=== PATIENT | male | born 1990 | race Caucasian/White ===

== ENCOUNTER 2018-12-04 16:07 | Inpatient (IN) | payer OTHER ==
[~2018-12-04] VITALS: Ht 193 cm; Wt 101.7 kg
[2018-12-04 19:53] VITALS: Ht 193 cm; Wt 101.7 kg
[2018-12-04 20:00] VITALS: BP 128/74; PULSE 60; RESP 19
[2018-12-04] MEDS ORDERED: DOCUSATE SODIUM 100 MG CAP PO PRN (21:30)
[2018-12-04] MEDS ORDERED: VANCOMYCIN IV PER PHARMACY XX SCH (21:30)
[2018-12-04] MEDS ORDERED: NACL 0.9% 3 ML SYG IV SCH (21:30)
[2018-12-04] MEDS ORDERED: ONDANSETRON 4 MG TAB PO PRN (21:30)
[2018-12-04] MEDS ORDERED: ACETAMINOPHEN 325 MG TAB PO PRN (21:30)
[2018-12-04] MEDS ORDERED: PENDING SANTYL ORDER FOR WOUND CARE XX PRN (22:30)
[2018-12-04] MEDS: FAMOTIDINE 20 MG TAB PO SCH (22:31)
[2018-12-04] MEDS: TRIMETHOPRIM/SULFAMETHOX (DS) TAB PO SCH (22:31)
[2018-12-04] MEDS: VANCOMYCIN 1 GM 250 ML IVPB SCH (22:32)
[2018-12-05 02:00] VITALS: BP 114/64; PULSE 68; RESP 19
[2018-12-05] MEDS: VANCOMYCIN 1 GM 250 ML IVPB SCH ×3 (06:17→22:26)
[2018-12-05 08:15] VITALS: BP 123/72; PULSE 72; RESP 20
[2018-12-05] MEDS: TRIMETHOPRIM/SULFAMETHOX (DS) TAB PO SCH ×2 (08:58→20:50)
[2018-12-05] MEDS: FAMOTIDINE 20 MG TAB PO SCH ×2 (08:58→20:50)
[2018-12-05] MEDS: NICOTINE (14 MG/24 HR) PATCH TRANSDERM SCH (09:00)
[2018-12-05] MEDS: HYDROCODONE/APAP (5/325) TAB PO PRN ×2 (09:50→20:50)
[2018-12-05] MEDS ORDERED: HYDROCODONE/APAP (5/325) TAB PO PRN (10:00)
[2018-12-05] MEDS ORDERED: HYDR-3601 PO (12:18)
--- NOTE | 2018-12-05 12:19 | PDOCDIS ---
Discharge Instructions CONDITION Yfqom2Kz Patient Condition: Etwtg1m Good HOME CARE INSTRUCTIONS: Qfuez1Vh Diet Instructions: Grzib5t Regular ACTIVITY: Oihxk4Wi Activity Restrictions: Roqxf4h Keep Limb Elevated FOLLOW UP/APPOINTMENTS Follow-up Plan pcp 1 week RIANNA SULTANA MD Dec 05, 2018 12:19
[2018-12-05 14:30] VITALS: BP 123/67; PULSE 76; RESP 20
[2018-12-05] MEDS ORDERED: LIDOCAINE 1% (MPF) 5 ML VIAL SC ONE (15:00)
--- NOTE | 2018-12-05 15:23 | HP ---
DATE OF ADMISSION: 12/04/2018 CHIEF COMPLAINT: Right index finger cellulitis. HISTORY OF PRESENT ILLNESS: A 28-year-old male with history of right index finger laceration several weeks prior to admission, failed outpatient therapy with oral antibiotics. He was seen at [facility] Room. The right index finger underwent incision and drainage. The patient was transferred to our facility for IV antibiotic therapy. His case was discussed with Dr. Palacio and he a mended followup with hand surgery as outpatient. The patient reports improvement in extent of the pa in involving the right index finger. He was started on IV vancomycin. PAST MEDICAL HISTORY: Inguinal hernia. SOCIAL HISTORY: The patient is apparently homeless. He denies tobacco or alcohol use. PHYSICAL EXAMINATION: GENERAL: Well-developed and well-nourished young male who is in no apparent distress. VITAL SIGNS: Stable. He is afebrile. HEENT: Extraocular muscles are intact. Pupils are equal and reactive to light bilaterally. Sclerae are anicteric. Oropharynx is clear and moist. NECK: Supple. No JVD, no carotid bruits. LUNGS: Clear to auscultation bilaterally. CARDIAC: Regular rate and rhythm. No murmurs, rubs or gallops. ABDOMEN: Soft, nontender, nondistended, normoactive bowel sounds. EXTREMITIES: Right index finger with clean dressing. NEUROLOGICAL: Nonfocal. LABORATORY DATA: WBC 6.2, hemoglobin 15, platelet count is 231,000. BMP is within normal limits. H emoglobin A1c is 4.7. Thyroid function test is normal. ASSESSMENT: 1. A 28-year-old male with right index finger abscess and cellulitis, status post incision and drain age at [facility] prior to admission. 2. Inguinal hernia. PLAN: 1. Place in med/surg observation. Continue IV vancomycin. 2. PICC line placement. 3. ambulatory services representative was consulted. 4. Discharge planning on IV vancomycin and follow up with hand surgeon as outpatient. Dictated By: RIANNA MARTIN/NTS Conf#: [id number] DID#: [id number] CC: BROOKE FIGUEROA MD;*EndCC*
[2018-12-05] MEDS ORDERED: VANC1.5P10 IV (16:03)
--- NOTE | 2018-12-05 16:04 | PDOCDIS ---
Discharge Instructions CONDITION Fixen3Zr Patient Condition: Wtuef8k Good HOME CARE INSTRUCTIONS: Ddkyi8Lb Diet Instructions: Vqbze3p Regular ACTIVITY: Cuxpi3Rs Activity Restrictions: Hyolm5z Keep Limb Elevated FOLLOW UP/APPOINTMENTS Follow-up Plan pcp 1 week RIANNA SULTANA MD Dec 05, 2018 16:03
--- NOTE | 2018-12-05 16:08 | PDOCDIS ---
Discharge Instructions CONDITION Mgwyr5Sl Patient Condition: Yubyh1r Good HOME CARE INSTRUCTIONS: Ununy7Mh Diet Instructions: Hiulm9b Regular ACTIVITY: Xwlpx0Yk Activity Restrictions: Nttcr3v No Restrictions Keep Limb Elevated FOLLOW UP/APPOINTMENTS Follow-up Plan pcp [address] Palacio 1 week RIANNA SULTANA MD Dec 05, 2018 16:08
--- NOTE | 2018-12-05 20:10 | DS ---
DATE OF ADMISSION: 12/04/2018 DATE OF DISCHARGE: DISCHARGE DIAGNOSES: 1. Right index cellulitis and abscess, status post incision and drainage. 2. Inguinal hernia. 3. Homeless. HOSPITAL COURSE: A 28-year-old male lacerated his index finger 2 weeks prior to admission. He was s een at [facility] and underwent incision and drainage of right index finger. Some abscess was drained. Following admission to our facility, he was placed on IV vancomycin. WBC was 6.2. He was afebrile. The patient is homeless. I ordered PICC line placement and IV vancomycin for a period of 7 days. case was also discussed with Dr. Palacio. He recommended followup as outpatient. DISCHARGE PLAN: The patient will be going to [facility] for [facility]. He will follow up with his PCP and Dr. Palacio as outpatient. Dictated By: RIANNA MARTIN/NTS Conf#: [id number] DID#: [id number] CC: BROOKE FIGUEROA MD;*EndCC*
[2018-12-05 21:04] VITALS: BP 128/80; PULSE 63; RESP 18
[2018-12-06 02:13] VITALS: BP 112/72; PULSE 60; RESP 18
[2018-12-06] MEDS: VANCOMYCIN HCL 1.5 GM in SOD CHLORIDE 0.9% 250 ML IVPB SCH ×2 (05:50→13:43)
[2018-12-06 07:48] VITALS: BP 135/77; PULSE 75; RESP 18
[2018-12-06] MEDS: HYDROCODONE/APAP (5/325) TAB PO PRN ×3 (07:58→16:49)
[2018-12-06] MEDS: TRIMETHOPRIM/SULFAMETHOX (DS) TAB PO SCH (09:25)
[2018-12-06] MEDS: FAMOTIDINE 20 MG TAB PO SCH (09:25)
[2018-12-06] MEDS: NICOTINE (14 MG/24 HR) PATCH TRANSDERM SCH (09:28)
--- NOTE | 2018-12-06 10:56 | PN ---
Date/Time of Note Date/Time of Note DATE: 12/06/18 TIME: 10:54 Subjective Doing well. Pain is well controlled. Objective Vitals Vital Signs Date Temp Pulse Resp B/P (MAP) Pulse Ox O2 O2 Flow FiO2 Time Delivery Rate 12/06/18 98.5 75 18 135/77 97 07:48 (96) 12/05/18 Room Air 14:30 Intake and Output 12/05/18 12/05/18 12/06/18 1515:00 23:00 07:00 IntakeIntake Total 490 ml 1170 ml 573.33 ml OutputOutput Total 600 ml BalanceBalance 490 ml 570 ml 573.33 ml Clear to auscultation bilaterally Regular rate and rhythm Soft nontender nondistended normoactive bowel sounds Right index finger with clean dressing Results Result Diagram: 12/05/18 0535 12/05/18 0535 Medications Medications Current Medications Nicotine (Nicoderm 14 Mg/ 24hr) 1 patch DAILY TRANSDERM Last administered on 12/06/18at 09:28; Admin Dose 1 PATCH; Start 12/05/18 at 09:00 IV Flush (NS 3 ml) 3 ml PER PROTOCOL IV ; Start 12/04/18 at 21:30 Ondansetron HCl (Zofran Tab) 4 mg Q6H PRN PO NAUSEA/VOMITING; Start 12/04/18 at 21:30 Acetaminophen (Tylenol Tab) 650 mg Q6H PRN PO .PAIN 1-3 OR TEMP Last administered on 12/04/18at 22:31; Admin Dose 650 MG; Start 12/04/18 at 21:30 Docusate Sodium (Colace) 100 mg Q12H PRN PO .CONSTIPATION; Start 12/04/18 at 21:30 Famotidine (Pepcid) 20 mg Q12 PO Last administered on 12/06/18at 09:25; Admin Dose 20 MG; Start 12/04/18 at 21:30 Vancomycin HCl (Vanco Iv Per Pharmacy) VANCOMYCIN PER PHARMACY PER PROTOCOL XX ; Start 12/04/18 at 21:30 Trimethoprim/ Sulfamethoxazole (Bactrim (Ds)) 1 tab BID PO Last administered on 12/06/18at 09:25; Admin Dose 1 TAB; Start 12/04/18 at 22:30 Miscellaneous Information (Pending [facility] Order For Wound Care) This patient villareal... PRN PRN XX WOUND CARE; Start 12/04/18 at 22:30 Acetaminophen/ Hydrocodone Bitart ([place] (5/325)) 1 tab Q4H PRN PO MODERATE PAIN LEVEL 4-6 Last administered on 12/06/18at 07:58; Admin Dose 1 TAB; Start 12/05/18 at 10:00 Acetaminophen/ Hydrocodone Bitart ([place] (5/325)) 2 tab Q4H PRN PO SEVERE PAIN LEVEL 7-10 Last administered on 12/05/18at 15:16; Admin Dose 2 TAB; Start 12/05/18 at 10:00 Vancomycin HCl 1.5 gm/Sodium Chloride 250 ml @ 83.333 mls/ hr Q8H IVPB Last administered on 12/06/18at 05:50; Admin Dose 83.333 MLS/HR; Start 12/06/18 at 06:00 Miscellaneous Information (*Rx Drug Level Order Reminder*) 1 0500 ONCE XX ; Start 12/07/18 at 05:00; Stop 12/07/18 at 05:01 VTE Prophylaxis Risk score (from Nsg)>0 risk: 0 SCD applied (from Nsg): No SCD contraindication: low risk/ambulating Lines/Catheters IV Catheter Type: Saline Lock [place] in Place: No Assessment/Plan Assessment/Plan 28-year-old male with right index finger cellulitis following laceration Status post I&D Homeless Continue IV vancomycin Await PICC line placement Discharge planning to [facility] Check wound culture results RIANNA SULTANA MD Dec 06, 2018 10:56
[2018-12-06 14:37] VITALS: BP 125/72; PULSE 65; RESP 18
--- NOTE | 2018-12-06 16:05 | QN ---
Documentation Comment As Physician Advisor I have reviewed the chart and have determined that as of today, this patient continues to receive medically necessary care required for the diagnosis and treatment of illness or injury. There has been no unreasonable delay in the rendering of medically necessary services, and this medically necessary care requires a length of stay expected to be greater than two midnights. Additional information gained during the stay now suggests this patient should have been classified as an inpatient at the time of admission, and I will change the status to inpatient to reflect that medical judgment. Besides the notes from the medical providers, the following information was used in this determination: Homeless patient requiring PICC line placement and IV vancomycin administration for cellulitis and wound infection Please call me at [phone] with questions. LATASHA HENDERSON MD Dec 06, 2018 16:05
== END 2018-12-06 19:35 | DRG 603 ==
LOC: 2NE 18:43 → INTOOBSV 18:43 → OBSVTOIN 12-06 16:03
PROVIDERS: ADMIT Internal Medicine; ATTEND Internal Medicine
PROC: 02HV33Z Insertion of Infusion Device into Superior Vena Cava, Percutaneous Approach (ICD-10-PCS; principal; 2018-12-06)
DX: L03.011 Cellulitis of right finger (principal); K40.90 Unilateral inguinal hernia, without obstruction or gangrene, not specified as recurrent; Z59.0 Homelessness
CPT/HCPCS: 36569; 71045; 76937; 80048; 80202; 83036; 84436; 84479; 85025; 99217; G0378; J3370; J7050